=== PATIENT | male | born 1950 | race Caucasian/White ===

== ENCOUNTER → 2017-08-07 | Outpatient (CLI) | payer MEDICARE ==
[~2017-08-07] MED LIST: AMITRIPTYLINE50 MG PO; ASPIRIN81 M1 PO; Bactroban Oint22 GM T; ICAPS AREDS INTRAOC; LOPRESSOR25 MG PO; RESTORIL7.5 MG PO; TRAMADOL HCL50 MG PO; VITAMIN D2000 IU PO
== END | disposition home or self-care (01) ==
LOC: WOUNDCARE 02:10
DX: I70.262 Atherosclerosis of native arteries of extremities with gangrene, left leg (principal); L97.521 Non-pressure chronic ulcer of other part of left foot limited to breakdown of skin; I10 Essential (primary) hypertension; G47.00 Insomnia, unspecified

== ENCOUNTER → 2017-08-28 | Outpatient (CLI) | payer MEDICARE | END | disposition home or self-care (01) | LOC: WOUNDCARE 00:51 | DX: I70.261 Atherosclerosis of native arteries of extremities with gangrene, right leg (principal); L97.411 Non-pressure chronic ulcer of right heel and midfoot limited to breakdown of skin; I70.262 Atherosclerosis of native arteries of extremities with gangrene, left leg; L97.421 Non-pressure chronic ulcer of left heel and midfoot limited to breakdown of skin; L97.521 Non-pressure chronic ulcer of other part of left foot limited to breakdown of skin; L97.511 Non-pressure chronic ulcer of other part of right foot limited to breakdown of skin; I10 Essential (primary) hypertension; G47.00 Insomnia, unspecified ==

== ENCOUNTER → 2017-09-04 | Outpatient (CLI) | payer MEDICARE | END | disposition home or self-care (01) | LOC: WOUNDCARE 03:00 | DX: I70.263 Atherosclerosis of native arteries of extremities with gangrene, bilateral legs (principal); L97.511 Non-pressure chronic ulcer of other part of right foot limited to breakdown of skin; L97.411 Non-pressure chronic ulcer of right heel and midfoot limited to breakdown of skin; L97.521 Non-pressure chronic ulcer of other part of left foot limited to breakdown of skin; L97.421 Non-pressure chronic ulcer of left heel and midfoot limited to breakdown of skin; I10 Essential (primary) hypertension; G47.00 Insomnia, unspecified ==

== ENCOUNTER → 2017-09-18 | Outpatient (CLI) | payer MEDICARE | END | disposition home or self-care (01) | LOC: WOUNDCARE 00:27 | DX: I70.263 Atherosclerosis of native arteries of extremities with gangrene, bilateral legs (principal); L97.411 Non-pressure chronic ulcer of right heel and midfoot limited to breakdown of skin; L97.511 Non-pressure chronic ulcer of other part of right foot limited to breakdown of skin; L97.421 Non-pressure chronic ulcer of left heel and midfoot limited to breakdown of skin; L97.521 Non-pressure chronic ulcer of other part of left foot limited to breakdown of skin; G47.00 Insomnia, unspecified; I10 Essential (primary) hypertension ==

== ENCOUNTER → 2020-02-25 | Outpatient (CLI) | payer MEDICARE | END | disposition home or self-care (01) | LOC: COVID19 12:04 | PROVIDERS: ATTEND Orthopaedic Surgery | DX: Z20.828 Contact with and (suspected) exposure to other viral communicable diseases (principal) ==

== ENCOUNTER 2021-12-10 14:25 | Emergency (ER) | payer MEDICARE ==
[~2021-12-10] VITALS: Wt 86.2 kg
[2021-12-10 14:52] LABS: BASO % 0.4 % (0.0-1.0); EOS % 0.2 % (1.0-4.0); HEMATOCRIT 39.5 % (42.0-52.0); LYMPH # 1.3 10*3/uL (1.3-4.4); MEAN CELL VOLUME 88.6 fl (80.0-94.0); MEAN CORPUSCULAR HGB 29.8 pg (27.0-31.0); MEAN CORPUSCULAR HGB CONC 33.7 g/dl (33.0-37.0); MEAN PLATELET VOLUME 11.1 fl (9.6-12.3); MONO # 0.8 10*3/uL (0.1-1.0); MONO % 9.8 % (3.0-9.0); NEUT # 6.2 10*3/uL (2.3-7.9); NEUT % 74.4 % (47.0-73.0); PLATELET COUNT AUTOMATED 241 10*3/uL (130-400); RED BLOOD COUNT 4.46 10*6/uL (4.50-5.90); RED CELL DISTRI WIDTH 13.9 % (0-14.5); WHITE BLOOD COUNT 8.4 10*3/uL (4.8-10.8)
[2021-12-10 15:03] LABS: ACT PARTIAL THROMBO TIME 28.1 SECONDS (20.0-32.1); INTERNATIONAL NORM RATIO 1.1 (2.0-3.5)
[2021-12-10 15:11] LABS: ALKALINE PHOSPHATASE 107 U/L (45-117); BUN 30 mg/dl (7-24); CHLORIDE 108 mmol/L (98-107); CPK 646 U/L (39-308); CREATININE 1.05 mg/dL (0.70-1.30); POTASSIUM 3.5 mmol/L (3.5-5.1); SGOT/AST 41 IU/L (3-35); SGPT/ALT 27 U/L (12-78); SODIUM 141 mmol/L (136-145)
[2021-12-10 15:21] LABS: ETHYL ALCOHOL < 3.0 mg/dl (<3)
[2021-12-10 17:35] LABS: BILIRUBIN 1+ (Negative); BLOOD Negative (Negative); CLARITY Cloudy (Clear); COLOR Dark Yellow (Yellow); GLUCOSE Negative (Negative); KETONE 3+ (Negative); LEUKO ESTERASE 2+ (Negative); NITRITE Negative (Negative); PH 5.5 (4.5-8.0); SPECIFIC GRAVITY >= 1.030 (1.001-1.030)
[2021-12-10 17:46] LABS: URINE AMPHETAMINES < 1000 (1000ng/ml); URINE BARBITURATES < 200 (200ng/ml); URINE BENZODIAZEPINES < 200 (200ng/ml); URINE CANNABINOIDS (THC) < 50 (50ng/ml); URINE COCAINE < 300 (300ng/ml); URINE METHADONE < 300 (300ng/ml); URINE OPIATES < 300 (300ng/ml)
[2021-12-10 17:50] LABS: URINE PHENCYCLIDINE < 25 (25ng/ml)
[2021-12-10 17:51] LABS: WBC 16-20 wbc/hpf (0-5)
[2021-12-10 17:52] LABS: BACTERIA 1+
[2021-12-10] MEDS ORDERED: ATHLETE'S FOO35.4 GM T (20:09)
[2021-12-10] MEDS ORDERED: CEPHALEXIN500 M1 PO (20:11)
== END 2021-12-10 21:13 | disposition home or self-care (01) ==
LOC: ED 14:25
PROVIDERS: Emergency Medicine
DX: R21 Rash and other nonspecific skin eruption (principal); Z20.822 Contact with and (suspected) exposure to COVID-19; Z13.89 Encounter for screening for other disorder; Z88.8 Allergy status to other drugs, medicaments and biological substances; Z79.899 Other long term (current) drug therapy